=== PATIENT | female | born 1950 | race Caucasian/White ===

== ENCOUNTER → 2023-11-27 08:59 | Outpatient (REF) | payer MEDICARE, OTHER, SELFPAY ==
[2023-11-27 12:18] LABS: % Basophils 0.9 % (0-2); % Eosinophils 1.6 % (0-6); % Immature Granulocytes 0.4 % (0-0.5); % Lymphocytes 31.6 % (20.5-51.1); % Monocytes 9.5 % (1.7-9.3); Absolute Basophils 0.1 10^3/uL (0-0.2); Absolute Eosinophils 0.1 10^3/uL (0-0.7); Absolute Lymphocytes 2.1 10^3/uL (1.2-3.4); Absolute Monocytes 0.6 10^3/uL (0.1-0.6); Absolute Neutrophils 3.8 10^3/uL (1.4-6.5); Hemoglobin 13.4 g/dL (12.0-16.0); Mean Corp Hgb Conc. 34.4 g/dL (33.0-37.0); Mean Corpuscular Hgb 32.4 pg (27.0-31.0); Mean Corpuscular Volume 94.4 fL (81.0-99.0); Nucleated Red Blood Cells % 0 %; Red Blood Cell Count 4.13 10^6/uL (4.20-5.40); Red Cell Dist. Width 13.7 % (11.5-14.5); White Blood Cell Count 6.8 10^3/uL (4.8-10.8)
[2023-11-27 12:32] LABS: ALT (SGPT) 16 U/L (0-35); AST (SGOT) 21 U/L (14-36); Alkaline Phosphatase 79 U/L (38-126); Blood Urea Nitrogen 16 mg/dl (7-17); Calcium 9.7 mg/dl (8.4-10.2); Carbon Dioxide 30 mmol/L (22-30); Chloride 97 mmol/L (98-107); Glucose 90 mg/dl (70-99); HDL Cholesterol 61 mg/dl; LDL Cholesterol, Calculated 115 mg/dl; Potassium 4.2 mmol/L (3.5-5.1); Sodium 134 mmol/L (135-145); Total Bilirubin 0.6 mg/dl (0.2-1.3); Total Cholesterol 204 mg/dl (50-199); Total Protein 6.9 g/dl (6.3-8.2); Triglyceride 142 mg/dl (10-149); Very Low Density Lipoprotein 28 mg/dl (0-30); eGFR > 60.00
[2023-11-27 13:04] LABS: TSH 4.37 uIU/ml (0.47-4.68)
== END ==
LOC: HWLAB 08:59
PROVIDERS: ATTENDING PHYSICIAN Family Medicine
DX: Z00.00 Encounter for general adult medical examination without abnormal findings (principal); E03.9 Hypothyroidism, unspecified; E78.00 Pure hypercholesterolemia, unspecified; Z23 Encounter for immunization; I10 Essential (primary) hypertension; E66.9 Obesity, unspecified
CPT/HCPCS: 36415; 80053; 80061; 84443; 85025

== ENCOUNTER 2024-01-05 21:55 | Observation (INO) | payer MEDICARE, OTHER, SELFPAY ==
[2024-01-05 16:03] VITALS: BP 149/84
--- NOTE | 2024-01-05 16:46 | ED.GENMED ---
History of Present Illness
<Kat Burgos, RAW SAMPLER - Last Filed: 01/06/24 20:00>
General
Chief Complaint: Abdominal Pain
Source: patient
Exam Limitations: none
Time Seen by Provider: 01/05/24 16:44
Nursing documentation reviewed up to this point in time: agreed with
History of Present Illness
History of Present Illness:
73-year-old female with history HTN, hypothyroid, hysterectomy, cholecystectomy presents stating she developed lower abdominal pain 4 days ago which has gradually worsened and now seems to be located mostly in the left lower abdomen. She has had
yellowish watery diarrhea for which she has been taking Imodium. She feels nauseous but has not vomited. She denies fever or chills. No recent antibiotic use. No recent travel, no known sick contacts, no known exposures
Past History
<Kat Burgos, RAW SAMPLER - Last Filed: 01/06/24 20:00>
Past History
ED Past Medical History: HTN and Hypothyroidism
ED Past Surgical History: Cholecystectomy, Gynecological and Tonsilectomy
Social History
Tobacco: Non-smoker
Alcohol: None
Personal:
Living: with family
Employment: Retired
Review of Systems
<Kat Burgos, RAW SAMPLER - Last Filed: 01/06/24 20:00>
Review of Systems
Allergies reviewed?: Yes
All Other Systems: ROS reviewed and negative except as documented in HPI and ROS
Constitutional: Denies fever
Respiratory: Denies trouble breathing
Cardiac: Denies chest pain
ABD/GI: Reports abdominal pain, nausea and diarrhea; Denies vomiting, bloody stools or black stools
: Denies dysuria, frequency, difficulty voiding or urgency
Musculoskeletal: Reports no symptoms
Skin: Reports no symptoms
Neurological: Reports no symptoms
Phy Exam
<Kat Burgos, RAW SAMPLER - Last Filed: 01/06/24 20:00>
Physical Exam
Physical Exam:
GENERAL: Mild distress with abdominal pain, anxiety. A&Ox3.
CONSTITUTIONAL: Afebrile.
EYES: Clear, conjunctivae normal
ENMT: moist mucus membranes, Pharynx nl
RESPIRATORY: Regular respirations, nonlabored, lungs clear.
CARDIOVASCULAR: Regular rate and rhythm, no murmurs, no rubs.
GI: Soft, tender L side abdomen, normal BS
MUSCULOSKELETAL: Moves with ease. Well perfused.
SKIN: Warm, dry, pink
PSYCH: Anxious mood and affect. Well kept, interactive and appropriate
NEUROLOGIC: Awake, alert and oriented. No focal neurological deficits
Course
<Kat Burgos, RAW SAMPLER - Last Filed: 01/06/24 20:00>
Orders/Labs/Results
Orders:
Orders
01/05/24 Lunch
Clear Liquid
At Your Request: Full Participation
Does patient need a safe tray?: No
01/05/24 16:44
IV Insert/Care/Rem.- Treatment PRN
01/05/24 16:45
CT Abd/Pel (IV only)-DH only Urgent
Comment:
Reason For Exam: Left-sided abdominal pain, diarrhea
Morphine Sulfate 4 mg IV NOW STA
Ondansetron Injectable [Zofran] 4 mg IV NOW STA
01/05/24 17:04
Complete Blood Count/With Diff Urgent
01/05/24 18:05
Comprehensive Metabolic Panel Urgent
Lipase Urgent
01/05/24 18:32
Urinalysis Reflex To Culture Urgent
Date Specimen was Collected: 01/05/24
Time Specimen was Collected: 18:30
Urine Microscopic Reflex Cult Urgent
Urine Culture Urgent
JAYNA Source: U
Specimen Description:
Date Specimen was Collected: 01/05/24
Time Specimen was Collected: 18:30
01/05/24 19:19
0.9% Sodium Chloride 1000 ml [Nss] 1,000 ml IV BOLUS
01/05/24 21:44
Admit/Transfer Patient As Directed
Co-Sign Provider:
Level of Care: Observation services
Assign to:: Medical/Surgical
Physician / Group: edith/hospitalist
Diagnosis: abdominal pain, diarrhea, hyponatremia
Reason for Hospitalization: abdominal pain, diarrhea, hyponatremia
01/05/24 21:45
Code Status As Directed
Resuscitation Status: Full Code
01/05/24 22:00
Flush (0.9% Sodium Chloride) [Flush (Nss)] See Dose Instructions IV PER PROTOCOL
01/05/24 23:19
0.9% Sodium Chloride 1000 ml [Nss] 1,000 ml IV 125 mls/hr
Morphine Sulfate 2 mg IV Q4HPRN PRN
Ondansetron Injectable [Zofran] 4 mg IV Q6HPRN PRN
01/05/24 23:19
Activity As Directed
Activity Level: As Tolerated
Vital Signs As Directed
Frequency: Per unit guidelines
Pulse Ox/spot Check [RESP] Routine
Quantity: 1
DX Deep Vein Thrombosis Video Routine
01/06/24 06:55
Basic Metabolic Panel IN AM
Complete Blood Count/With Diff IN AM
Magnesium IN AM
01/06/24 18:00
Enoxaparin Sodium [Lovenox] 40 mg SC QPM
Abnormal Lab Results
01/05/24 01/05/24 01/05/24
17:04 18:05 18:32
MCH 31.7 H pg
(27.0-31.0)
Abs Immat Gran (auto) 0.1 H 10^3/uL
(0-0.05)
Absolute Monos (auto) 0.8 H 10^3/uL
(0.1-0.6)
Immature Gran % 0.8 H %
(0-0.5)
Monocytes % 9.9 H %
(1.7-9.3)
Sodium 128 L mmol/L
(135-145)
Chloride 95 L mmol/L
(98-107)
Urine Ketones 1+ A
(Negative)
Leukocyte Esterase Rfl 2+ A
(Negative)
Urine WBC (Reflex) 11-15 A /HPF
(0-5)
01/05/24 17:04
01/05/24 18:05
Vital Signs
Initial and Last Documented VS:
Initial Vital Signs
Temp Pulse Resp BP Pulse Ox
97.8 F 88 20 149/84 100
01/05/24 16:03 01/05/24 16:03 01/05/24 16:03 01/05/24 16:03 01/05/24 16:03
Last Documented Vital Signs
Temp Pulse Resp BP Pulse Ox
97.8 F 56 16 151/74 98
01/06/24 07:00 01/06/24 07:00 01/06/24 07:00 01/06/24 07:00 01/06/24 07:00
<MEHNAZ Villalobos - Last Filed: 01/05/24 20:46>
Orders/Labs/Results
Orders:
Orders
01/05/24 Lunch
Clear Liquid
At Your Request: Full Participation
Does patient need a safe tray?: No
01/05/24 16:44
IV Insert/Care/Rem.- Treatment PRN
01/05/24 16:45
CT Abd/Pel (IV only)-DH only Urgent
Comment:
Reason For Exam: Left-sided abdominal pain, diarrhea
Morphine Sulfate 4 mg IV NOW STA
Ondansetron Injectable [Zofran] 4 mg IV NOW STA
01/05/24 17:04
Complete Blood Count/With Diff Urgent
01/05/24 18:05
Comprehensive Metabolic Panel Urgent
Lipase Urgent
01/05/24 18:32
Urinalysis Reflex To Culture Urgent
Date Specimen was Collected: 01/05/24
Time Specimen was Collected: 18:30
Urine Microscopic Reflex Cult Urgent
Urine Culture Urgent
JAYNA Source: U
Specimen Description:
Date Specimen was Collected: 01/05/24
Time Specimen was Collected: 18:30
01/05/24 19:19
0.9% Sodium Chloride 1000 ml [Nss] 1,000 ml IV BOLUS
01/05/24 21:44
Admit/Transfer Patient As Directed
Co-Sign Provider:
Level of Care: Observation services
Assign to:: Medical/Surgical
Physician / Group: edith/hospitalist
Diagnosis: abdominal pain, diarrhea, hyponatremia
Reason for Hospitalization: abdominal pain, diarrhea, hyponatremia
01/05/24 21:45
Code Status As Directed
Resuscitation Status: Full Code
01/05/24 22:00
Flush (0.9% Sodium Chloride) [Flush (Nss)] See Dose Instructions IV PER PROTOCOL
01/05/24 23:19
0.9% Sodium Chloride 1000 ml [Nss] 1,000 ml IV 125 mls/hr
Morphine Sulfate 2 mg IV Q4HPRN PRN
Ondansetron Injectable [Zofran] 4 mg IV Q6HPRN PRN
01/05/24 23:19
Activity As Directed
Activity Level: As Tolerated
Vital Signs As Directed
Frequency: Per unit guidelines
Pulse Ox/spot Check [RESP] Routine
Quantity: 1
DX Deep Vein Thrombosis Video Routine
01/06/24 06:55
Basic Metabolic Panel IN AM
Complete Blood Count/With Diff IN AM
Magnesium IN AM
01/06/24 18:00
Enoxaparin Sodium [Lovenox] 40 mg SC QPM
Abnormal Lab Results
01/05/24 01/05/24 01/05/24
17:04 18:05 18:32
MCH 31.7 H pg
(27.0-31.0)
Abs Immat Gran (auto) 0.1 H 10^3/uL
(0-0.05)
Absolute Monos (auto) 0.8 H 10^3/uL
(0.1-0.6)
Immature Gran % 0.8 H %
(0-0.5)
Monocytes % 9.9 H %
(1.7-9.3)
Sodium 128 L mmol/L
(135-145)
Chloride 95 L mmol/L
(98-107)
Urine Ketones 1+ A
(Negative)
Leukocyte Esterase Rfl 2+ A
(Negative)
Urine WBC (Reflex) 11-15 A /HPF
(0-5)
01/05/24 17:04
01/05/24 18:05
Vital Signs
Initial and Last Documented VS:
Initial Vital Signs
Temp Pulse Resp BP Pulse Ox
97.8 F 88 20 149/84 100
01/05/24 16:03 01/05/24 16:03 01/05/24 16:03 01/05/24 16:03 01/05/24 16:03
Last Documented Vital Signs
Temp Pulse Resp BP Pulse Ox
97.8 F 56 16 151/74 98
01/06/24 07:00 01/06/24 07:00 01/06/24 07:00 01/06/24 07:00 01/06/24 07:00
<Kat Burgos, RAW SAMPLER - Last Filed: 01/06/24 20:00>
MDM/Problems Addressed
Differential Diagnosis Includes:
Gastroenteritis, diverticulitis, colitis
MDM/Problems Addressed:
73-year-old female with history HTN, hypothyroid, hysterectomy, cholecystectomy presents stating she developed lower abdominal pain 4 days ago which has gradually worsened and now seems to be located mostly in the left lower abdomen. She has had
yellowish watery diarrhea for which she has been taking Imodium. She feels nauseous but has not vomited. She denies fever or chills. No recent antibiotic use. No recent travel, no known sick contacts, no known exposures
Afebrile, moderate distress due to pain
5:45 PM:
CBC normal
CMP: Sodium 128 otherwise no clinically significant abnormality
Lipase normal
UA: Nitrates negative leukocytes +2, no RBCs, 11-15 RBCs with 6-10 epithelial squamous cells. Patient is asymptomatic for urinary tract infection symptoms, no treatment indicated at this time, pending culture results.
7:00 PM
Patient is awaiting CAT scan, she remains comfortable after IV fluids and pain medication
Case discussed with Savannah Moreland RAW SAMPLER who will assume care from this point.
<MEHNAZ Villalobos - Last Filed: 01/05/24 20:46>
MDM/Problems Addressed
MDM/Problems Addressed:
73-year-old female with history HTN, hypothyroid, hysterectomy, cholecystectomy presents stating she developed lower abdominal pain 4 days ago which has gradually worsened and now seems to be located mostly in the left lower abdomen. She has had
yellowish watery diarrhea for which she has been taking Imodium. She feels nauseous but has not vomited. She denies fever or chills. No recent antibiotic use. No recent travel, no known sick contacts, no known exposures
Afebrile, moderate distress due to pain
5:45 PM:
CBC normal
CMP: Sodium 128 otherwise no clinically significant abnormality
Lipase normal
UA: Nitrates negative leukocytes +2, no RBCs, 11-15 RBCs with 6-10 epithelial squamous cells. Patient is asymptomatic for urinary tract infection symptoms, no treatment indicated at this time, pending culture results.
7:00 PM
Patient is awaiting CAT scan, she remains comfortable after IV fluids and pain medication
Case discussed with Savannah Moreland RAW SAMPLER who will assume care from this point.
back into see patient. Reviewed CT scan. Explained that her sodium is low and patient continues with some abd pain. Patient has not had diarrhea since this morning so stool has not been collected. will admit patient for further evaluation.
Hospitalist notified.
<MEHNAZ Villalobos - Last Filed: 01/05/24 20:46>
*Radiology
Radiology exam reviewed: radiology read reviewed (CT=No significant acute abnormality identified in the abdomen or pelvis as described above. )
*Pulse Oximetry
Patient hypoxic: no
*EKG
Interpreted by ED Provider?: NA
Rate: EKG- N/A
*Resource Conservationist Interpretation
Rate: Resource Conservationist- N/A
*Critical Care Note
Total Time (30-74mins, 75-104mins- exclusive of procedures): Not Applicable
ED Attending Note
<Kat Burgos NP - Last Filed: 01/06/24 20:00>
-
Portions of this chart may have been created with voice recognition software.� Occasional wrong word or��sound alike� substitutions may have occurred due to the inherent limitations of voice recognition software.
Discharge Plan
Departure
Patient Disposition: Admit
Date of Disposition: 01/05/24
Time of Disposition: 20:45
Admit to: Med/Surg
Presentation/result/management discussed w/ accepting MD/DO: Hospitalist
Patient with high blood pressure during this ER visit?: Yes
Condition: Good
Discharge Problem:
Abdominal pain, Acute hyponatremia, Diarrhea
Interventions
Interventions:
*General Assessment Last Done: 01/06/24 00:12
*Neglect/Abuse Screening Last Done: 01/06/24 00:12
ED- Fall Risk Assessment Last Done: 01/05/24 21:01
*Nursing Disposition Last Done: 01/06/24 00:12
IH-Tbyrli-Azzeredzyc Assessment Last Done: 01/05/24 21:01
Discharge Date and Time
Discharge Date/Time: 01/05/24 23:45
[2024-01-05] MEDS: MORPHINE SULFATE 4 MG IV (17:05)
[2024-01-05] MEDS: ZOFRAN 4 MG IV ×2 (17:05→23:28)
[2024-01-05 17:09] VITALS: BP 173/68
[2024-01-05 17:19] LABS: % Basophils 0.5 % (0-2); % Eosinophils 0.8 % (0-6); % Immature Granulocytes 0.8 % (0-0.5); % Lymphocytes 27.1 % (20.5-51.1); % Monocytes 9.9 % (1.7-9.3); % Neutrophils 60.9 % (42.2-75.2); Absolute Eosinophils 0.1 10^3/uL (0-0.7); Absolute Immature Granulocytes 0.1 10^3/uL (0-0.05); Absolute Lymphocytes 2.3 10^3/uL (1.2-3.4); Absolute Monocytes 0.8 10^3/uL (0.1-0.6); Absolute Neutrophils 5.2 10^3/uL (1.4-6.5); Hematocrit 39.3 % (37.0-47.0); Hemoglobin 13.9 g/dL (12.0-16.0); Mean Corp Hgb Conc. 35.4 g/dL (33.0-37.0); Mean Corpuscular Hgb 31.7 pg (27.0-31.0); Mean Corpuscular Volume 89.5 fL (81.0-99.0); Mean Platelet Volume 8.7 fL (7.4-10.4); Nucleated Red Blood Cells % 0 %; Platelet Count 291 10^3/uL (130-400); Red Blood Cell Count 4.39 10^6/uL (4.20-5.40); Red Cell Dist. Width 12.9 % (11.5-14.5); White Blood Cell Count 8.5 10^3/uL (4.8-10.8)
[2024-01-05 18:00] VITALS: BP 163/66
[2024-01-05 18:38] LABS: Urine Albumin Negative (Neg - Trace); Urine Bilirubin Negative (Negative); Urine Character Clear (Clear); Urine Color Yellow; Urine Glucose Negative (Negative); Urine Ketone 1+ (Negative); Urine Leukocyte 2+ (Negative); Urine Nitrite Negative (Negative); Urine Occult Blood Negative (Negative); Urine Urobilinogen Negative (Neg - 1+)
[2024-01-05 18:40] LABS: ALT (SGPT) 17 U/L (0-35); AST (SGOT) 22 U/L (14-36); Albumin 4.1 g/dl (3.5-5.0); Alkaline Phosphatase 77 U/L (38-126); Blood Urea Nitrogen 8 mg/dl (7-17); Calcium 9.3 mg/dl (8.4-10.2); Carbon Dioxide 24 mmol/L (22-30); Chloride 95 mmol/L (98-107); Glucose 94 mg/dl (70-99); Lipase 32 U/L (23-300); Potassium 3.5 mmol/L (3.5-5.1); Sodium 128 mmol/L (135-145); Total Bilirubin 1.1 mg/dl (0.2-1.3); Total Protein 6.8 g/dl (6.3-8.2); eGFR > 60.00
[2024-01-05 18:48] LABS: Urine Red Blood Cell 0-2 /HPF (0-2)
[2024-01-05] MEDS: NSS 1000 IV ×2 (20:50→23:28)
--- NOTE | 2024-01-05 21:10 | HPS.HSE ---
Family Physician
-
Family Physician: Daxa Marie
Chief Complaint
-
abdominal pain, diarrhea
History of Present Illness
The patient is a 73 yo woman with PMH significant for HTN and hypothyroidism, who presents to the ED due to abdominal pain mostly in the left lower quadrant associated with liquid yellow diarrhea since Saturday, mostly in the morning. She had
another episode of yellow watery non-bloody diarrhea this morning and has acute cramping left lower quadrant and diffuse abdominal pain that improved slightly with Zofran and Morphine given in the ED. She has had associated belching, nausea, no
vomiting, no fever, no chills, no diarrhea since being in the ED. No recent travel, no sick contacts. She does cook at home and prepare meats for meals at home, however no other contacts she ate with have had similar symptoms.
ED txt: IV Morphine 4 mg, IV Zofran, C.Difficile toxin pending
Na 128
Medical History
Past Medical History
Past Medical History: Reports HTN and Hypothyroidism
Past Surgical History: Reports Cholecystectomy, Gynocological (GHAZALA) and Tonsilectomy
Social History
Tobacco: Non-smoker
Alcohol: None
Personal:
Living: With Family
Employment: Retired
Family History
Family History: Not pertinent
Allergies / Home Medications
Allergies reflects when Allergies were last updated in [facility].
Home Medications with original date entered in [facility]
Allergy/Medication List:
Allergies
Allergy/AdvReac Type Severity Reaction Status Date / Time
Cephalosporins Allergy Rash Verified 01/05/24 16:03
clindamycin Allergy Rash Verified 01/05/24 16:03
Penicillins Allergy Rash Verified 01/05/24 16:03
Synthroid 112 mcg PO daily
HCTZ PO daily unknown dosing-hold for now
Review of Systems
-
A 12 point ROS was completed and negative except as noted: Yes
Physical Exam
Vital Signs
Vital Signs
Temp Pulse Resp BP Pulse Ox
97.8 F 61 13 163/66 99
01/05/24 16:03 01/05/24 21:00 01/05/24 21:00 01/05/24 18:00 01/05/24 21:00
Physical Exam
General: Well Developed, Well Nourished, No Apparent Distress and Conversant
HEENT: NormoCephalic, Anicteric and Moist mucous membranes
Respiratory: Clear
Cardiac: S1/S2 and Regular Rhythm
GI: Soft, Non Distended and Tender (LLQ, voluntary guarding)
Musculoskeletal: No Clubbing, No Cyanosis and No Edema
Skin: Warm and Dry
Neuro: AO x 3, No Motor Deficits and Nonfocal/grossly intact
Psych: Calm
Laboratory Results
-
01/05/24 17:04
01/05/24 18:05
Laboratory Results
Total Bilirubin 1.1 mg/dl (0.2-1.3) 01/05/24 18:05
AST 22 U/L (14-36) 01/05/24 18:05
ALT 17 U/L (0-35) 01/05/24 18:05
Alkaline Phosphatase 77 U/L (38-126) 01/05/24 18:05
Lipase 32 U/L (23-300) 01/05/24 18:05
Data Reviewed
-
CT Scan: Report Reviewed by me (CT a/p IV contrast (no oral)- No significant acute abnormality identified in the abdomen or pelvis, as described above.)
Impression/Plan
-
IMPRESSION:
#Abdominal pain and diarrhea, possible infection versus inflammatory process, possible viral gastroenteritis versus food-born illness, no evidence for obstruction nor diverticulitis, normal WBC, afebrile
-stool studies/C.Difficile toxin
-IVF
-supportive care with IV Morphine/IV Zofran/IV PPI for now
-consider additional imaging/GI consult if pain not improved, monitor serial abdominal examinations
#Hyponatremia, likely hypovolemic hyponatremia
-continue IVF overnight and repeat Na level/BMP in am
#HTN
-hold HCTZ
#Hypothyroidism
-Continue Synthroid
-outpatient TSH normal in November per patient
#Incidental findings on CT discussed with the patient: Simple hepatic cysts, largest in the posterior segment right hepatic lobe measuring up to 7.5 cm. Bilateral hypoattenuating renal lesions, some which are compatible with simple cysts and others
which are too small to accurately characterize, and for which no imaging follow-up is recommended. The largest simple renal cyst is in the anterior left renal midpole measuring up to 5.9 cm. The spleen, adrenal glands and pancreas are within normal
limits. Gallbladder absent.
DVT proph-Lovenox
Full Code
[2024-01-05 23:00] VITALS: BP 138/84
[2024-01-05 23:30] VITALS: BP 185/44
[2024-01-06 00:56] VITALS: BP 138/84; BMI 37.8
[2024-01-06] MEDS: MORPHINE SULFATE 2 MG IV (03:24)
[2024-01-06] MEDS: DILAUDID 0.25 MG IV ×2 (04:03→09:15)
--- NOTE | 2024-01-06 05:30 | PTCARENOTE ---
Pt complaining of severe abdominal pain 8/10 stabbing in the LUQ and LLQ. PRN morphine was given to the pt to help relieve pain. After about 25 minutes the pt had not experienced any relief from pain. MATE SHIP was notified and ordered 0.25mg of Dilaudid.
STAT medication was promptly given to pt. Pt experienced relief from pain after receiving the Dilaudid. MATE SHIP updated and PRN medication was changed to Dilaudid.
[2024-01-06] MEDS: SYNTHROID 112 MCG PO (06:13)
[2024-01-06 07:00] VITALS: BP 151/74
[2024-01-06 07:29] LABS: % Basophils 0.5 % (0-2); % Eosinophils 1.2 % (0-6); % Immature Granulocytes 0.8 % (0-0.5); % Lymphocytes 22.7 % (20.5-51.1); % Monocytes 10.4 % (1.7-9.3); % Neutrophils 64.4 % (42.2-75.2); Absolute Eosinophils 0.1 10^3/uL (0-0.7); Absolute Immature Granulocytes 0.1 10^3/uL (0-0.05); Absolute Lymphocytes 1.7 10^3/uL (1.2-3.4); Absolute Monocytes 0.8 10^3/uL (0.1-0.6); Absolute Neutrophils 4.9 10^3/uL (1.4-6.5); Hematocrit 35.3 % (37.0-47.0); Hemoglobin 12.8 g/dL (12.0-16.0); Mean Corp Hgb Conc. 36.3 g/dL (33.0-37.0); Mean Corpuscular Hgb 32.1 pg (27.0-31.0); Mean Corpuscular Volume 88.5 fL (81.0-99.0); Mean Platelet Volume 8.6 fL (7.4-10.4); Nucleated Red Blood Cells % 0 %; Platelet Count 291 10^3/uL (130-400); Red Blood Cell Count 3.99 10^6/uL (4.20-5.40); Red Cell Dist. Width 13.2 % (11.5-14.5); White Blood Cell Count 7.7 10^3/uL (4.8-10.8)
[2024-01-06 08:01] LABS: Blood Urea Nitrogen 6 mg/dl (7-17); Carbon Dioxide 21 mmol/L (22-30); Chloride 100 mmol/L (98-107); Estimated Creatinine Clearance 77 ml/min; Glucose 99 mg/dl (70-99); Magnesium 1.9 mg/dl (1.6-2.3); Potassium 3.5 mmol/L (3.5-5.1); Sodium 132 mmol/L (135-145); eGFR > 60.00
--- NOTE | 2024-01-06 10:41 | CM ---
CM met with pt bedside
Pt resides with her dtr in a multistory home with 4STE
Full flight to 2nd floor
Pt is independent with her ADls, drives+
Denies use of DMEs
Pt has Rx coverage through [employer], now called [facility] per pt
PCP- Daxa Marie
Rx- Brendon Ratliff
Per nursing, pt is independent throughout room
Pt is OBS- BADILLO verbally reviewed due to precautions
Copy provided
Discharge Disposition- home, no needs- dtr transport
--- NOTE | 2024-01-06 11:06 | W.PN.HOSP.TC ---
Addendum entered and electronically signed by Jordan Zambrano MD 01/06/24 15:32:
Patient seen and examined
Discussed with resident
Impression/plan:*
Presentation with acute onset of abdominal discomfort and diarrhea.
Suspect acute gastroenteritis possibly viral.
Afebrile and hemodynamically stable with no systemic symptoms.
Exam benign
CT scan of the abdomen pelvis with no acute abnormalities
Normal white count
Mild hyponatremia secondary to hypovolemia improving with IV fluids
Symptomatically improved shortly postadmission.
Advance diet.
Okay for discharge and outpatient monitoring
May resume HCTZ if stable oral intake and resolved GI symptoms.
Original Note:
Today's Communication/Plan
-
* Discharge today.
Assessment / Plan
Assessment / Plan
Assessment
The patient is a 73 yo woman with PMH significant for HTN and hypothyroidism, who presents to the ED due to abdominal pain mostly in the left lower quadrant associated with liquid yellow diarrhea since Saturday, mostly in the morning. She had
another episode of yellow watery non-bloody diarrhea this morning and has acute cramping left lower quadrant and diffuse abdominal pain that improved slightly with Zofran and Morphine given in the ED. She has had associated belching, nausea, no
vomiting, no fever, no chills, no diarrhea since being in the ED. No recent travel, no sick contacts. She does cook at home and prepare meats for meals at home, however no other contacts she ate with have had similar symptoms.
ED txt: IV Morphine 4 mg, IV Zofran, C.Difficile toxin pending
Na 128
Plan
Viral gastroenteritis
- Likely infection versus inflammatory process, food-born illness.
- No evidence for obstruction nor diverticulitis, normal WBC, afebrile
- stool studies/C.Difficile toxin
- IVF
- supportive care with IV Morphine/IV Zofran/IV PPI for now
- consider additional imaging/GI consult if pain not improved, monitor serial abdominal examinations
- Has not had a bowel movement since last night.
- Feels well; vitals stable; blood work better - okay to discharge.
Hyponatremia, likely hypovolemic hyponatremia
- Likely from diarrhea; hold HCTZ.
- Improved overnight
- Continue IVF.
Hypertension
- Hold HCTZ
Hypothyroidism
- Continue Synthroid
- Cutpatient TSH normal in November per patient
Simple hepatic cysts
- Incidental findings on CT discussed with the patient
- No further investigation warranted.
DVT prophylaxis
- Enoxaparin
Code status
- Full.
Anticipated Discharge: Today
Subjective/Interval History
-
Date of Service: January 06, 2024
Objective Data
-
Labs:
Laboratory Results
01/06/24
06:55
WBC 7.7
Hgb 12.8
Hct 35.3 L
Plt Count 291
Sodium 132 L
Potassium 3.5
Chloride 100
Carbon Dioxide 21 L
BUN 6 L
Creatinine 0.7
Glucose 99
Calcium 9.0
Vital Signs:
Vital Signs
Temp Pulse Resp BP Pulse Ox
97.8 F 56 16 151/74 98
01/06/24 07:00 01/06/24 07:00 01/06/24 07:00 01/06/24 07:00 01/06/24 07:00
I&O
01/05/24 01/06/24 01/07/24
06:59 06:59 06:59
Intake Total 180 / 180
Balance 180 / 180
Review of Systems
-
History Source: Patient
Constitutional: Reports No Symptoms
EENT: Reports No Symptoms Reported
Respiratory: Reports No Symptoms
Cardiac: Reports No Symptoms
Abdomen/GI: Reports Diarrhea and Other; Denies Nausea, Vomiting, Black Stools, Anorexia or Pain
Genitourinary: Reports No Symptoms
Musculoskeletal: Reports No Symptoms
Skin: Reports No Symptoms
Neuro: Reports No Symptoms
Endocrine: Reports No Symptoms
Hematologic / Lymphatic: Reports No Symptoms
Allergy / Immunology: Reports No Symptoms
Physical Exam
-
General: No Apparent Distress and Comfortable
HEENT: Normocephalic, Atraumatic, Moist Mucous Membranes, Anicteric and No Ptosis
Respiratory: Clear to Auscultation and Non Labored Respirations
Cardiac: Regular Rhythm and S1/S2
Breast: Deferred by me
GI: Soft, Nontender, Nondistended and Normal Bowel Sounds
Rectal: Deferred by Provider
Genito-urinary: No Costovertebral Tender
Musculoskeletal: No Clubbing, No Cyanosis and No Edema
Skin: Warm, Dry and IV Access / Catheter Site
Neuro: Awake, Alert, Oriented and Nonfocal/Grossly Intact
Hematologic / Lymphatic: No Lymphadenopathy
Psych: Calm
--- NOTE | 2024-01-06 13:57 | W.DCSUMMARY ---
Documented by User: Marlon Lowe MD, Resident 01/06/24 14:06
Discharge Summary
Discharge Data
Date of Admission: 01/05/24
Date of Discharge: 01/06/24
-
Pending Results: Yes (stool studies)
Hospital Course
Primary discharge diagnosis
* Viral gastroenteritis
Secondary discharge diagnoses
* Hypovolemic hyponatremia
* Essential hypertension
* Acquired hypothyroidism
* Hepatic cyst
Hospital course
Dede Banuelos, age 73, came to the emergency on 01-05-24 with abdominal pain with liquid yellow diarrhea for the past 5 days. Her symptoms had remained persistent however she began to feel uncomfortable and decided to go to the hospital. No known
sick contacts, suspected food poisoning, recent travels or other changes to her health or medications. In the ED, she was found to by hyponatremic, likely hypovolemic and started on IV hydration. Her blood work improved the next morning, and she was
feeling better. She did not have a bowel movement since she came to the hospital, and the abdominal pain was mostly resolved. Her vitals remained stable throughout her visit and she will be discharged to home today without any needs. Advised to
re-check blood work in 1 week and follow-up with primary. Recommended to discuss switching hydrochlorothiazide to a better agent due to concerns regarding hyponatremia. Repeat CT AP in 4-6 months for incidental hepatic cyst found at this visit.
Discharge Plan
-
Patient Disposition: Home (Routine Discharge)
Discharge Diagnosis/Procedures: Viral gastroenteritis
Condition: Good
Diet: As tolerated
Activity: As tolerated
Driving Restrictions: As prior to admission
Bathing Restrictions: None
Blood Work: CBC and BMP in 1 week
Others Tests: CT AP in 4-6 months
Activity Restrictions/Additional Instructions:
Consider changing hydrochlorothiazide to other antihypertensive because of concerns for low sodium long-term
Instructions: Viral gastroenteritis in adults
Referrals:
Daxa Marie, [Family Provider] -
Prescriptions:
Continued
levothyroxine
112 mcg PO Daily
hydrochlorothiazide
25 mg PO 1XD
Discharge Orders:
Discharge Patient (As Directed); Ordered 01/06/24
Ordered By: Marlon Lowe
Discharge Date and Time
Discharge Date/Time: 01/06/24 14:08
Print Language: SUDANESE

Documented by User: Jordan Zambrano MD 01/06/24 15:29
Discharge Summary
Discharge Data
Date of Admission: 01/05/24
Date of Discharge: 01/06/24
Discharge Plan
-
Patient Disposition: Home (Routine Discharge)
Discharge Diagnosis/Procedures: Viral gastroenteritis
Condition: Good
Diet: As tolerated
Activity: As tolerated
Driving Restrictions: As prior to admission
Bathing Restrictions: None
Blood Work: CBC and BMP in 1 week
Others Tests: CT AP in 4-6 months
Activity Restrictions/Additional Instructions:
Consider changing hydrochlorothiazide to other antihypertensive because of concerns for low sodium long-term
Instructions: Viral gastroenteritis in adults
Referrals:
Daxa Marie DO [Family Provider] -
Prescriptions:
Continued
levothyroxine
112 mcg PO Daily
hydrochlorothiazide
25 mg PO 1XD
Discharge Orders:
Discharge Patient (As Directed); Ordered 01/06/24
Ordered By: Marlon Lowe
Discharge Date and Time
Discharge Date/Time: 01/06/24 14:08
Print Language: SUDANESE
== END 2024-01-06 14:08 | disposition home or self-care (01) ==
LOC: 4 WEST ACU 21:55
PROVIDERS: Registered Nurse; Student in an Organized Health Care Education/Training Program; ADMITTING PHYSICIAN Internal Medicine; ATTENDING PHYSICIAN Internal Medicine; EMERGENCY PHYSICIAN Emergency Medicine; FAMILY PHYSICIAN Family Medicine
DX: A08.4 Viral intestinal infection, unspecified (principal); E87.1 Hypo-osmolality and hyponatremia; E86.1 Hypovolemia; I10 Essential (primary) hypertension; E03.9 Hypothyroidism, unspecified; K76.89 Other specified diseases of liver
CPT/HCPCS: 74177; 80048; 80053; 81003; 81015; 83690; 83735; 85025; 87086; 96361; 96374; 96375; 99285; G0378; Q9967

== ENCOUNTER 2024-01-13 04:04 | Inpatient (IN) | payer MEDICARE, OTHER, SELFPAY ==
[2024-01-13] VITALS (10 sets, daily range): BP systolic 128–155; BP diastolic 57–82; BMI 39.1; BMI 37.6
--- NOTE | 2024-01-13 01:10 | ED.GENMED ---
History of Present Illness
General
Chief Complaint: Abdominal Pain
Source: patient and previous hospital records (Overnight hospitalization January 04 to January 05 for very similar complaint.)
Exam Limitations: none
Time Seen by Provider: 01/13/24 00:39
Nursing documentation reviewed up to this point in time: agreed with
History of Present Illness
History of Present Illness:
This is a 73-year-old woman with history of hypertension, hypothyroidism, hysterectomy, cholecystectomy who returns to the ED with complaints of ongoing intermittent left lower quadrant pain accompanied with nausea and intermittent yellowish liquid
stools. She was hospitalized overnight 1 week ago, January 04 to January 05 with very similar complaints. She has not had a fever nor chills, no recent antibiotics, no close contacts with similar symptoms and no recent travel.
She was hospitalized overnight for treatment of hyponatremia thought to be dehydration and related and symptoms thought to be viral gastroenteritis in nature. She had no diarrhea during that hospitalization nor ED stay thus stool cultures were not
obtained. CT abdomen pelvis showed diverticulosis otherwise was unremarkable. No evidence of diverticulitis nor colitis.
Patient states since discharge on the symptoms have been sporadic but overall had been improving and she followed up with her primary care physician on , January 08 and was feeling pretty good. She has attempted to maintain a bland diet
but crampy abdominal pain, nausea and intermittent diarrhea returned the following day and has been persistent throughout the weekend. She reports loose stools primarily in the morning, denies hematemesis. She has been nauseated, difficulty eating
but has had no episodes of vomiting.
No history of similar episodes in the past.
Crampy abdominal pain seems to improve with Tylenol but does not resolve.
Past History
Past History
ED Past Medical History: HTN and Hypothyroidism
ED Past Surgical History: Cholecystectomy, Gynecological and Tonsilectomy
Social History
Tobacco: Non-smoker
Alcohol: None
Personal:
Living: with family
Employment: Retired
Family History
Family History: Other (Noncontributory)
Phy Exam
Physical Exam
Physical Exam:
GENERAL: 73-year-old woman appears her stated age, awake and alert, mildly to moderately anxious, intermittently briefly tearful. Easily communicative.
EYE: anicteric
NECK: Supple, nontender, no meningismus, no significant adenopathy.
ENT: oral mucosa is mildly dry. Lips are mildly dry. No rhinorrhea.
CARDIAC: Regular rate and rhythm. no murmur.
LUNGS: Clear breath sounds bilaterally, no acute respiratory distress, no wheezes/rales/rhonchi
ABDOMEN: Rotund, soft, nondistended, mild generalized tenderness throughout with moderate tenderness left lower quadrant, no r/g, no cvat. Mildly hyperactive bowel sounds.
NEUROLOGICAL: Alert and oriented x3, no focal neuro deficits. Gait is steady.
SKIN: Warm and dry, normal color, skin intact. No rash.
MUSCULOSKELETAL: No C/C/E. peripheral pulses are full and equal b/l. No palpable tenderness.
PSYCH: Anxious. Cooperative.
Course
Orders/Labs/Results
Orders:
Orders
01/13/24 01:05
Complete Blood Count/With Diff Urgent
Comprehensive Metabolic Panel Urgent
Lactic Acid Urgent
01/13/24 01:08
STOOL [C difficile Antigen & Toxins] Urgent
JAYNA Source: Feces/Stool
Specimen Description:
Stool Culture Urgent
JAYNA Source: Feces/Stool
Specimen Description:
0.9% Sodium Chloride 1000 ml [Nss] 1,000 ml IV BOLUS
Morphine Sulfate 4 mg IV NOW STA
Ondansetron Injectable [Zofran] 4 mg IV NOW STA
01/13/24 01:09
CT Abd/pelvis W Iv Cont Urgent
Comment:
Reason For Exam: LLQ abd pain w N and diarrhea
01/13/24 02:48
LevoFLOXacin 500 MG/100 ML [Levaquin] 500 mg in 100 ml IV NOW
MetroNIDAZOLE 500 MG/100 ML [Flagyl 500 mg] 100 ml IV NOW
Abnormal Lab Results
01/13/24
01:05
MCH 31.7 H pg
(27.0-31.0)
MCHC 37.2 H g/dL
(33.0-37.0)
Absolute Monos (auto) 0.7 H 10^3/uL
(0.1-0.6)
Monocytes % 9.9 H %
(1.7-9.3)
Sodium 126 L mmol/L
(135-145)
Chloride 93 L mmol/L
(98-107)
Carbon Dioxide 20 L mmol/L
(22-30)
BUN 5 L mg/dl
(7-17)
Glucose 110 H mg/dl
(70-99)
01/13/24 01:05
01/13/24 01:05
Vital Signs
Initial and Last Documented VS:
Initial Vital Signs
Temp Pulse Resp BP Pulse Ox
98.9 F 75 22 137/82 98
01/13/24 00:37 01/13/24 00:37 01/13/24 00:37 01/13/24 00:37 01/13/24 00:37
Last Documented Vital Signs
Temp Pulse Resp BP Pulse Ox
98.9 F 62 22 155/74 96
01/13/24 00:37 01/13/24 02:16 01/13/24 00:37 01/13/24 02:13 01/13/24 02:16
MDM/Problems Addressed
Differential Diagnosis Includes:
Concern for colitis, diverticulitis, concern for recurrent hyponatremia, dehydration/acute kidney injury.
Will check labs and due to ongoing symptoms concern for colitis, diverticulitis, will repeat CT abdomen and pelvis.
Will initiate IV fluids and medicate for nausea and pain.
*Radiology
Radiology exam reviewed: radiology read reviewed (CAT scan shows mild acute sigmoid diverticulitis)
*Pulse Oximetry
Patient hypoxic: no
*Critical Care Note
Total Time (30-74mins, 75-104mins- exclusive of procedures): Not Applicable
Update Note
Update Note:
01/13/2024 0250 AM
Patient is much more comfortable after IV fluids, Zofran and morphine but continues with significant tenderness left lower quadrant.
Labs are remarkable for recurrent hyponatremia with sodium of 126.
CAT scan shows acute sigmoid diverticulitis, no evidence of perforation or abscess.
Will initiate IV antibiotics, continue IV fluids, continue IV pain medication and admit to hospitalist service.
ED Attending Note
-
Portions of this chart may have been created with voice recognition software.� Occasional wrong word or��sound alike� substitutions may have occurred due to the inherent limitations of voice recognition software.
Discharge Plan
Departure
Patient Disposition: Admit
Date of Disposition: 01/13/24
Time of Disposition: 02:51
Admit to: Med/Surg
Admit to doctor: Dewayne
Presentation/result/management discussed w/ accepting MD/DO: Hospitalist
Discharge Problem:
acute sigmoid diverticulitis, recurrent hyponatremia
Prescriptions:
No Action
levothyroxine
112 mcg PO Daily
hydrochlorothiazide
25 mg PO 1XD
Referrals:
Daxa Marie DO [Family Provider] -
Interventions
Interventions:
*Risk Screen - Suicide Last Done: 01/13/24 01:26
*General Assessment Last Done: 01/13/24 00:37
*Neglect/Abuse Screening Last Done: 01/13/24 01:26
ED- Fall Risk Assessment Last Done: 01/13/24 01:26
*ED COVID-19 Vaccine History Last Done: 01/13/24 01:26
PF-Bcymvg-Ctrtfkyyyd Assessment Last Done: 01/13/24 01:24
Discharge Date and Time
Print Language: UZBEK
[2024-01-13] MEDS: MORPHINE SULFATE 4 MG IV (01:12)
[2024-01-13] MEDS: ZOFRAN 4 MG IV (01:13)
[2024-01-13] MEDS: NSS 1000 IV ×2 (01:13→06:13)
[2024-01-13 01:16] LABS: % Basophils 0.9 % (0-2); % Eosinophils 1.3 % (0-6); % Immature Granulocytes 0.4 % (0-0.5); % Lymphocytes 35.1 % (20.5-51.1); % Monocytes 9.9 % (1.7-9.3); % Neutrophils 52.4 % (42.2-75.2); Absolute Basophils 0.1 10^3/uL (0-0.2); Absolute Eosinophils 0.1 10^3/uL (0-0.7); Absolute Lymphocytes 2.4 10^3/uL (1.2-3.4); Absolute Monocytes 0.7 10^3/uL (0.1-0.6); Absolute Neutrophils 3.6 10^3/uL (1.4-6.5); Hematocrit 37.1 % (37.0-47.0); Hemoglobin 13.8 g/dL (12.0-16.0); Mean Corp Hgb Conc. 37.2 g/dL (33.0-37.0); Mean Corpuscular Hgb 31.7 pg (27.0-31.0); Mean Corpuscular Volume 85.3 fL (81.0-99.0); Mean Platelet Volume 8.3 fL (7.4-10.4); Nucleated Red Blood Cells % 0 %; Platelet Count 321 10^3/uL (130-400); Red Blood Cell Count 4.35 10^6/uL (4.20-5.40); Red Cell Dist. Width 12.9 % (11.5-14.5); White Blood Cell Count 6.9 10^3/uL (4.8-10.8)
[2024-01-13 01:29] LABS: Lactic Acid 1.8 mmol/L (0.7-2.0)
[2024-01-13 01:30] LABS: ALT (SGPT) 19 U/L (0-35); AST (SGOT) 25 U/L (14-36); Albumin 4.5 g/dl (3.5-5.0); Alkaline Phosphatase 83 U/L (38-126); Blood Urea Nitrogen 5 mg/dl (7-17); Calcium 9.9 mg/dl (8.4-10.2); Carbon Dioxide 20 mmol/L (22-30); Chloride 93 mmol/L (98-107); Glucose 110 mg/dl (70-99); Potassium 3.5 mmol/L (3.5-5.1); Sodium 126 mmol/L (135-145); Total Bilirubin 1.1 mg/dl (0.2-1.3); eGFR > 60.00
[2024-01-13] MEDS: LEVAQUIN 100 IV (03:10)
--- NOTE | 2024-01-13 03:31 | HPS.HSE ---
Family Physician
-
Family Physician: Daxa Marie
Chief Complaint
-
Abd Pain, Diarrhea
History of Present Illness
Patient is a 73y F with PMH significant for hypertension and hypothyroidism who presents to ED complaining of abdominal pain and diarrhea. Patient states that she initially developed symptoms about 2 weeks ago. She describes liquid, yellow
stools and LLQ abdominal pain that gradually increased in intensity. She also had nausea with occasional non-bloody, bilious emesis. Patient ultimately presented to the ED here on 01/04 where she was noted to have hyponatremia. She was admitted
and treated with IVFs. Her diarrhea seemed to improve and patient was discharged to home. She states that she felt well for several days; however, on Saturday her symptoms returned again. She has the same yellow stools and LLQ abdominal pain. She
denies any fevers or chills.
Patient was seen by her PCP following her prior hospitalization. She was started on sertraline (has taken 2 doses thus far) and was advised to change HCTZ to lisinopril (but has yet to obtain this prescription).
With worsening pain / diarrhea, patient returned to the ED this evening.
Medical History
Past Medical History
Past Medical History: Reports Other
Additional Past Medical History:
Hypertension
Hypothyroidism
Obesity
Hyperthyroidism s/p BARTLETT Ablation
Past Surgical History: Reports Other
Additional Past Surgical History:
Cholecystectomy
GHAZALA
T&A
Social History
Tobacco: Non-smoker
Alcohol: Occasional (Very rare)
Drug: None
Family History
Family History: Not pertinent
Allergies / Home Medications
Allergies reflects when Allergies were last updated in [employer].
Home Medications with original date entered in [employer]
Allergy/Medication List:
Allergies
Allergy/AdvReac Type Severity Reaction Status Date / Time
Cephalosporins Allergy Rash Verified 01/05/24 16:03
clindamycin Allergy Rash Verified 01/05/24 16:03
Penicillins Allergy Rash Verified 01/05/24 16:03
Home Medications
hydrochlorothiazide 25 mg PO 1XD 01/06/24
levothyroxine 112 mcg PO Daily 01/06/24
sertraline 25 mg tablet 25 mg PO DAILY 01/13/24
Review of Systems
-
History Source: Patient
A 12 point ROS was completed and negative except as noted: Yes
Constitutional: Reports Fatigue; Denies Fever or Chills
Respiratory: Denies Cough or Trouble Breathing
Cardiac: Denies Chest Pain or Palpitations
Abdomen/GI: Reports Abdominal Pain, Nausea, Vomiting, Diarrhea and Anorexia; Denies Bloody Stools or Black Stools
: Denies Dysuria, Frequency or Flank Pain
Neurological: Denies Dizzy or Headache
Psych: Denies Depression or Anxiety
Physical Exam
Vital Signs
Vital Signs
Temp Pulse Resp BP Pulse Ox
98.9 F 62 22 155/74 96
01/13/24 00:37 01/13/24 02:16 01/13/24 00:37 01/13/24 02:13 01/13/24 02:16
Physical Exam
General: Other (73y F in mild distress due to abdominal pain / nausea.)
HEENT: Moist mucous membranes and PERRLA
Respiratory: Clear; No Wheezes, Rales or Rhonchi
Cardiac: S1/S2 and Regular Rhythm; No Murmur
GI: Soft, Non Distended, Normal Bowel Sounds and Other (Pos LLQ tenderness with voluntary guarding. No rebound.)
Musculoskeletal: No Clubbing, No Cyanosis and Other (Trace - 1+ ankle edema bilaterally.)
Neuro: AO x 3
Laboratory Results
-
01/13/24 01:05
01/13/24 01:05
Laboratory Results
Lactic Acid 1.8 mmol/L (0.7-2.0) 01/13/24 01:05
Total Bilirubin 1.1 mg/dl (0.2-1.3) 01/13/24 01:05
AST 25 U/L (14-36) 01/13/24 01:05
ALT 19 U/L (0-35) 01/13/24 01:05
Alkaline Phosphatase 83 U/L (38-126) 01/13/24 01:05
Impression/Plan
-
A/P: Patient is a 73y F with PMH significant for hypertension and hypothyroidism who presents to ED complaining of abdominal pain and diarrhea.
Sigmoid Diverticulitis
- Admit for further evaluation and treatment.
- Continue with IV abx for now. Unfortunately, patient has several abx allergies that necessitate use of Levo / Flagyl.
- Supportive care including IVFs, pain control, antiemetics.
- Check stool studies if patient has further diarrhea.
- Follow for clinical improvement with abx course.
- Note that patient is afebrile, has no leukocytosis and prior CT scan was interpreted as unremarkable.
- Would recommend follow-up with GI as an outpatient for eventual colonoscopy (none prior).
Hyponatremia
- Recurrent likely due to continued use of HCTZ and continued volume losses.
- Stop HCTZ completely as planned by PCP.
- IVF overnight.
- Follow for improvement in Na levels.
Benign Hypertension
- Stable. Begin lisinopril 10mg daily and adjust as needed for adequate BP control.
Hypothyroidism
- Continue current dose of T4 for now.
- Update TFTs.
Anxiety / Depression
- Newly started on sertraline (2 doses) in the event that GI symptoms were related to 'nervous bowels', etc.
- Hold further SSRI for now.
- Follow for improvement in GI symptoms with above treatments.
Obesity due to excess calories
- Affects all aspects of care.
- Encourage healthy diet and increased exercise with goal of weight loss.
DVT Prophylaxis: SCDs
Code Status: Full
[2024-01-13] MEDS: FLAGYL 500 MG 100 IV ×3 (03:46→23:45)
[2024-01-13] MEDS: COMPAZINE 5 MG IV (05:04)
[2024-01-13] MEDS: DILAUDID 0.5 MG IV (05:06)
[2024-01-13 05:40] LABS: Hematocrit 33.1 % (37.0-47.0); Hemoglobin 12.4 g/dL (12.0-16.0); Mean Corp Hgb Conc. 37.5 g/dL (33.0-37.0); Mean Corpuscular Hgb 32.4 pg (27.0-31.0); Mean Corpuscular Volume 86.4 fL (81.0-99.0); Mean Platelet Volume 8.3 fL (7.4-10.4); Platelet Count 297 10^3/uL (130-400); Red Blood Cell Count 3.83 10^6/uL (4.20-5.40); Red Cell Dist. Width 12.9 % (11.5-14.5); White Blood Cell Count 5.9 10^3/uL (4.8-10.8)
--- NOTE | 2024-01-13 06:00 | PTCARENOTE ---
Pt admitted from ED to room 2139, aaox3, IVF's started. Pt has no c/o pain or nausea at this time. Oriented to room and call light.
[2024-01-13 06:07] LABS: Blood Urea Nitrogen 5 mg/dl (7-17); Calcium 9.1 mg/dl (8.4-10.2); Carbon Dioxide 20 mmol/L (22-30); Chloride 97 mmol/L (98-107); Estimated Creatinine Clearance 91 ml/min; Glucose 97 mg/dl (70-99); Potassium 3.7 mmol/L (3.5-5.1); Sodium 125 mmol/L (135-145); eGFR > 60.00
[2024-01-13] MEDS: SYNTHROID 112 MCG PO (06:12)
[2024-01-13 06:35] LABS: TSH Reflex To Free T4 7.76 uIU/ml (0.47-4.68)
[2024-01-13 07:06] LABS: Free T4 1.68 ng/dl (0.78-2.19)
[2024-01-13] MEDS: ZESTRIL 10 MG PO (09:19)
[2024-01-13 10:20] LABS: Osmolality Serum 263 mOsm/kg (275-300)
--- NOTE | 2024-01-13 11:38 | W.PN.UPDATE ---
Update Note
Progress Note Update
Seen and examined independent of overnight physician. Patient states of epigastric burning sensation. Mild nausea. No abdominal pain. Trying to drink liquids.
General: eating breakfast.
HEENT: Moist mucous membranes and PERRLA
Respiratory: Clear; No Wheezes, Rales or Rhonchi
Cardiac: S1/S2 and Regular Rhythm; No Murmur
GI: Soft, Non Distended, Normal Bowel Sounds , non tender orin in LLQ this am
Musculoskeletal: No Clubbing, No Cyanosis and Other (Trace - 1+ ankle edema bilaterally.)
Neuro: AO x 3
A/P: Patient is a 73y F with PMH significant for hypertension and hypothyroidism who presents to ED complaining of abdominal pain and diarrhea.
Acute Sigmoid Diverticulitis
- Continue with IV abx for now. Unfortunately, patient has several abx allergies that necessitate use of Levo / Flagyl.
- Supportive care including IVFs, pain control, antiemetics.
- Check stool studies if patient has further diarrhea.
- Follow for clinical improvement with abx course.
- Note that patient is afebrile, has no leukocytosis and prior CT scan was interpreted as unremarkable.
- Would recommend follow-up with GI as an outpatient for eventual colonoscopy as never had colonoscopy in the past.
Hyponatremia Hypotonic
- Recurrent likely due to continued use of HCTZ and continued volume losses.
- Stop HCTZ completely as planned by PCP.
- IVF overnight.
- Follow for improvement in Na levels. Urine studies pending.
- Nephro input. May need 3%?
Benign Hypertension
- Stable. Begin lisinopril 10mg daily and adjust as needed for adequate BP control.
Hypothyroidism Subclinical
- Continue current dose of T4 for now.
- repeat TFTs 4- 6 weeks as outpatient pending resolution of acute illness
Anxiety / Depression
- Newly started on sertraline (2 doses) in the event that GI symptoms were related to 'nervous bowels', etc.
- Hold further SSRI for now.
- Follow for improvement in GI symptoms with above treatments.
Obesity due to excess calories
- Affects all aspects of care.
- Encourage healthy diet and increased exercise with goal of weight loss.
DVT Prophylaxis: SCDs
Code Status: Full
[2024-01-13] MEDS: NSS (PRESERVATIVE FREE) 8 ML IV ×2 (11:45→20:54)
[2024-01-13] MEDS: PEPCID 20 MG IV ×2 (11:46→20:54)
[2024-01-13 12:43] LABS: Urine Sodium 92 mmol/L (30-90)
--- NOTE | 2024-01-13 12:56 | W.CON.NEPH ---
Consultation
-
Date/Time Consultation Requested: 01/13/2024 12:00 noon
Date/Time Consultation Performed: 01/13/2024 1:00 PM
Requesting Provider: Dr. Pineda
Performing Provider: Dr. Kendrick
Reason for Consultation: Hyponatremia
Medical History
-
Chief Complaint: Hyponatremia
History of Present Illness:
The patient is a 73-year-old female with a past medical history of hypertension maintained on hydrochlorothiazide. She is also maintained on sertraline for depression which was just started this past weekend. She is maintained on levothyroxine for
acquired hypothyroidism. She was recently admitted a week prior for 1 day following a diarrhea illness for which she was also noted to have some underlying hyponatremia when her sodium was noted to be 128 on 01/05/24. She represented last evening
with recurrent complaints of left lower quadrant abdominal pain and diarrhea with yellow stools. Her sodium was 125 and nephrology was asked to see the patient.
Past Medical History
Hypertension
Hypothyroidism, status post BARTLETT ablation for hyperthyroidism
Depression
Cholecystectomy
GHAZALA
Tand A
Social History
Tobacco: Non-Smoker
Alcohol: Other (Rare)
Family History
No CKD
Allergies / Home Medications
Allergy/AdvReac Type Severity Reaction Status Date / Time
Cephalosporins Allergy Rash Verified 01/05/24 16:03
clindamycin Allergy Rash Verified 01/05/24 16:03
Penicillins Allergy Rash Verified 01/05/24 16:03
�Medication �Instructions �Recorded �Confirmed �Type
hydrochlorothiazide 25 mg tablet 25 mg PO DAILY Blood Pressure ##0 01/06/24 01/13/24 History
levothyroxine 112 mcg tablet 112 mcg PO DAILY Thyroid ##0 01/06/24 01/13/24 History
sertraline 25 mg tablet 25 mg PO DAILY Depression 01/13/24 01/13/24 History
Review of Systems
-
History Source: Patient
All other systems: Negative unless noted
Constitutional: Fatigue
EENT: No Symptoms
Respiratory: No Symptoms
Cardiac: No Symptoms
Abdomen/GI: Abdominal Pain (Left lower quadrant), Nausea, Diarrhea, Black Stools (Yellow stools) and Anorexia
: No Symptoms
Musculoskeletal: No Symptoms
Skin: No Symptoms
Neurological: No Symptoms
Endocrine: No Symptoms
Hematologic/Lymphatic: No Symptoms
Physical Exam
Vital Signs
Vital Signs
Temp Pulse Resp BP Pulse Ox
97.4 F 59 16 129/59 96
01/13/24 07:54 01/13/24 09:19 01/13/24 07:54 01/13/24 09:19 01/13/24 07:54
Lab Results
01/13/24 05:12
01/13/24 05:12
WBC 5.9 10^3/uL (4.8-10.8) 01/13/24 05:12
RBC 3.83 10^6/uL (4.20-5.40) L 01/13/24 05:12
Hgb 12.4 g/dL (12.0-16.0) 01/13/24 05:12
Hct 33.1 % (37.0-47.0) L 01/13/24 05:12
Plt Count 297 10^3/uL (130-400) 01/13/24 05:12
Sodium 125 mmol/L (135-145) L 01/13/24 05:12
Potassium 3.7 mmol/L (3.5-5.1) 01/13/24 05:12
Chloride 97 mmol/L (98-107) L 01/13/24 05:12
Carbon Dioxide 20 mmol/L (22-30) L 01/13/24 05:12
BUN 5 mg/dl (7-17) L 01/13/24 05:12
Creatinine 0.6 mg/dL (0.6-1.0) 01/13/24 05:12
eGFR > 60.00 01/13/24 05:12
Glucose 97 mg/dl (70-99) 01/13/24 05:12
Calcium 9.1 mg/dl (8.4-10.2) 01/13/24 05:12
Albumin 4.5 g/dl (3.5-5.0) 01/13/24 01:05
Physical Exam
General: AOx3, Nontoxic , NAD
HEENT: PERRL, EOMI, Anicteric, Conjunctivae Clear, Ear/Nose Intact, Hearing Normal, Oropharynx Clear/Moist, Dentition Intact, Facial Symmetry, Neck Supple, Neck: Trachea Midline, No JVD and No Thyromegaly, no Bruits
Respiratory: Clear to auscultation bilaterally with normal lung exersion
Cardiac: S1/S2 and Regular Rate/Rhythm
Breast: Deferred by me
Abdomen: Tender in left lower quadrant nondistended, Normal Bowel Sounds and No Hepatosplenomegaly
Rectal: Deferred by Provider
Genito-urinary: No Costovertebral Tenderness
Extremities: No Clubbing, No Cyanosis and No Edema
Skin: No Rash or open lesions
Neuro: Nonfocal/Grossly Intact, CN II-XII (Intact) and Strength (Musculoskeletal exam 5 out of 5 both upper and lower extremities)
Hematologic/Lymphatic: No Cervical Lymphadenopathy, No Submandibular Lymphadenopathy and No Supraclavicular Lymphadenopathy
Psych: Mood/afflect pleasant, Insight/judgement good and Appropriate
Vascular: plus 2 pedal and radial pulses
Data Reviewed
-
Radiology: Report Reviewed by me (CT of abdomen and pelvis: note mild signmoid diverticulitis)
Labs: Labs Reviewed by me ([facility] CBC and urine osmolality)
Old Records: Reviewed (Reviewed sodium level of 08/13 to 01/06/2024 as well as discharge summary from hospitalization for abdominal pain and diarrhea)
Assessment/Plan
-
Impression:
Hyponatremia
Sigmoid diverticulitis
History of acquired hypothyroidism
HTN
Depression
Plan:
-Hyponatremia likely induced from SIADH and volume losses given diarrhea, poor solute intake, and hydrochlorothiazide
-Hold HCTZ and SSRI
-Obtain urine osmolality
-I will provide hypertonic saline for 250 cc, hold isotonic saline given worsening hyponatremia
-Add fluid restriction
-Lisinopril has been added for hypertension
--- NOTE | 2024-01-13 13:41 | CM ---
Reviewed the chart notes and spoke with the patient at the bedside. The patient resides with her daughter in a two story home with two steps to enter. The patient reports no DME/VN/SNF in the past. The patient confirmed [facility] The patient anticipates being discharged to home with no additional needs being identied at this time. CM continues to be available to patient/family and is monitoring medical plan for needs at discharge.
Plan: Discharge to home when medically stable.
[2024-01-13] MEDS: SODIUM CHLORIDE 3% 250 IV (14:25)
[2024-01-13 15:14] LABS: Osmolality Urine 452 mOsm/kg (300-900)
[2024-01-14] MEDS: LEVAQUIN 100 IV (04:31)
[2024-01-14] MEDS: SYNTHROID 112 MCG PO (05:50)
[2024-01-14] MEDS: FLAGYL 500 MG 100 IV ×3 (05:50→21:25)
[2024-01-14 06:00] VITALS: BMI 37.7
[2024-01-14 06:21] LABS: % Basophils 0.8 % (0-2); % Immature Granulocytes 0.6 % (0-0.5); % Lymphocytes 32.9 % (20.5-51.1); % Monocytes 11.2 % (1.7-9.3); % Neutrophils 52.5 % (42.2-75.2); Absolute Basophils 0.1 10^3/uL (0-0.2); Absolute Eosinophils 0.1 10^3/uL (0-0.7); Absolute Lymphocytes 2.1 10^3/uL (1.2-3.4); Absolute Monocytes 0.7 10^3/uL (0.1-0.6); Absolute Neutrophils 3.4 10^3/uL (1.4-6.5); Hematocrit 33.8 % (37.0-47.0); Hemoglobin 12.2 g/dL (12.0-16.0); Mean Corp Hgb Conc. 36.1 g/dL (33.0-37.0); Mean Corpuscular Hgb 31.9 pg (27.0-31.0); Mean Corpuscular Volume 88.5 fL (81.0-99.0); Mean Platelet Volume 8.5 fL (7.4-10.4); Nucleated Red Blood Cells % 0 %; Platelet Count 308 10^3/uL (130-400); Red Blood Cell Count 3.82 10^6/uL (4.20-5.40); Red Cell Dist. Width 13.2 % (11.5-14.5); White Blood Cell Count 6.5 10^3/uL (4.8-10.8)
[2024-01-14 06:54] LABS: Blood Urea Nitrogen 4 mg/dl (7-17); Carbon Dioxide 22 mmol/L (22-30); Chloride 101 mmol/L (98-107); Estimated Creatinine Clearance 90 ml/min; Glucose 97 mg/dl (70-99); Potassium 3.8 mmol/L (3.5-5.1); Sodium 131 mmol/L (135-145); eGFR > 60.00
[2024-01-14 07:35] VITALS: BP 138/72
[2024-01-14] MEDS: PEPCID 20 MG IV ×2 (08:55→21:25)
[2024-01-14] MEDS: ZESTRIL 10 MG PO (08:55)
[2024-01-14] MEDS: NSS (PRESERVATIVE FREE) 8 ML IV ×2 (08:55→21:25)
--- NOTE | 2024-01-14 10:43 | W.PN.HOSP.TC ---
Today's Communication/Plan
-
samsca
abx
advance diet
dc stool studies
Assessment / Plan
Assessment / Plan
A/P: Patient is a 73y F with PMH significant for hypertension and hypothyroidism who presents to ED complaining of abdominal pain and diarrhea.
Acute Sigmoid Diverticulitis
- Continue with IV abx for now. Unfortunately, patient has several abx allergies that necessitate use of Levo / Flagyl.
- Supportive care including IVFs, pain control, antiemetics.
- Check stool studies if patient has further diarrhea. None since admission.
- Follow for clinical improvement with abx course.
- Note that patient is afebrile, has no leukocytosis and prior CT scan was interpreted as unremarkable.
- Would recommend follow-up with GI as an outpatient for eventual colonoscopy as never had colonoscopy in the past.
Hyponatremia Hypotonic
- Recurrent likely due to continued use of HCTZ and continued volume losses.
- Stop HCTZ completely as planned by PCP.
- IVF stopped
- s/p 3% NACL (Per pt, she was flushed during the transfusion)-no rash noted. Flushing resolved per pt.
- Na at 131 and will receive Samsca per nephro.
- Trend BMP
Benign Hypertension
- Stable. Begin lisinopril 10mg daily and adjust as needed for adequate BP control.
Hypothyroidism Subclinical
- Continue current dose of T4 for now.
- repeat TFTs 4- 6 weeks as outpatient pending resolution of acute illness
Anxiety / Depression
- Newly started on sertraline (2 doses) in the event that GI symptoms were related to 'nervous bowels', etc.
- Hold further SSRI for now.
- Follow for improvement in GI symptoms with above treatments.
Obesity due to excess calories
- Affects all aspects of care.
- Encourage healthy diet and increased exercise with goal of weight loss.
DVT Prophylaxis: SCDs
Code Status: Full
Anticipated Discharge: Within 24 hours
Subjective/Interval History
-
Date of Service: January 14, 2024
denies abd pain
tolerating liquids
no nausea or vomiting or diarrhea
Objective Data
-
Labs:
Laboratory Results
01/14/24
05:41
WBC 6.5
Hgb 12.2
Hct 33.8 L
Plt Count 308
Sodium 131 L
Potassium 3.8
Chloride 101
Carbon Dioxide 22
BUN 4 L
Creatinine 0.6
Glucose 97
Calcium 9.0
Vital Signs:
Vital Signs
Temp Pulse Resp BP Pulse Ox
98.1 F 62 16 138/72 99
01/14/24 07:35 01/14/24 08:55 01/14/24 07:35 01/14/24 08:55 01/14/24 07:35
I&O
01/13/24 01/14/24 01/15/24
06:59 06:59 06:59
Intake Total 1140 / 1140
Balance 1140 / 1140
Physical Exam
-
General: No Apparent Distress and Comfortable
HEENT: Normocephalic, Atraumatic, Moist Mucous Membranes, Anicteric and No Ptosis
Respiratory: Clear to Auscultation and Non Labored Respirations
Cardiac: Regular Rhythm and S1/S2
Breast: Deferred by me
GI: Soft, Nontender, Nondistended and Normal Bowel Sounds
Rectal: Deferred by Provider
Genito-urinary: No Costovertebral Tender
Musculoskeletal: No Clubbing, No Cyanosis and No Edema
Skin: Warm and IV Access / Catheter Site
Neuro: Awake, Alert, Oriented and Nonfocal/Grossly Intact
Psych: Calm
[2024-01-14] MEDS: SAMSCA 15 MG PO (11:24)
--- NOTE | 2024-01-14 12:04 | W.PN.NEPH.PH ---
Today's Communication / Plan
-
samsca
Assessment/Plan
-
Impression:
Hyponatremia
Sigmoid diverticulitis
History of acquired hypothyroidism
HTN
Depression
Plan:
Hold HCTZ and SSRI, could eventually restart SSRI
titrate lisinopril for HTN
samsca today
-
-
Date of Service: January 14, 2024
CC / HPI / ROS
-
Chief Complaint:
hyponatremia
History of Present Illness:
Na up to 131 with 3%
BP stable
tolerating advance of diet
Review of Systems:
no CP/SOB
Labs
-
Labs:
WBC 6.5 10^3/uL (4.8-10.8) 01/14/24 05:41
RBC 3.82 10^6/uL (4.20-5.40) L 01/14/24 05:41
Hgb 12.2 g/dL (12.0-16.0) 01/14/24 05:41
Hct 33.8 % (37.0-47.0) L 01/14/24 05:41
Plt Count 308 10^3/uL (130-400) 01/14/24 05:41
Sodium 131 mmol/L (135-145) L 01/14/24 05:41
Potassium 3.8 mmol/L (3.5-5.1) 01/14/24 05:41
Chloride 101 mmol/L (98-107) 01/14/24 05:41
Carbon Dioxide 22 mmol/L (22-30) 01/14/24 05:41
BUN 4 mg/dl (7-17) L 01/14/24 05:41
Creatinine 0.6 mg/dL (0.6-1.0) 01/14/24 05:41
eGFR > 60.00 01/14/24 05:41
Glucose 97 mg/dl (70-99) 01/14/24 05:41
Calcium 9.0 mg/dl (8.4-10.2) 01/14/24 05:41
Albumin 4.5 g/dl (3.5-5.0) 01/13/24 01:05
Physical Exam
-
Vital Signs:
Vital Signs
Temp Pulse Resp BP Pulse Ox
98.1 F 62 16 138/72 99
01/14/24 07:35 01/14/24 08:55 01/14/24 07:35 01/14/24 08:55 01/14/24 10:56
Cardiovascular:: Regular rate and rhythm
Respiratory:: Bilateral: Coarse
Lung Excursion:: Normal
Abdomen:: Nontender and Soft
Bowel Sounds:: Normal
Extremity Edema:: None: Bilateral:
--- NOTE | 2024-01-14 14:16 | CM ---
Reviewed the chart notes. Patient's diet advanced to low residual. CM continues to be available to patient/family and is monitoring medical plan for needs at discharge.
Plan: Discharge to home when medically stable. No needs identified at this time.
[2024-01-14 15:40] VITALS: BP 133/65
[2024-01-14] MEDS: LOVENOX 40 MG SC (17:34)
[2024-01-14 23:25] VITALS: BP 148/66
[2024-01-15] MEDS: LEVAQUIN 100 IV (04:37)
[2024-01-15 05:19] VITALS: BMI 37.6
[2024-01-15] MEDS: SYNTHROID 112 MCG PO (05:38)
[2024-01-15] MEDS: FLAGYL 500 MG 100 IV (05:38)
[2024-01-15 06:36] LABS: % Basophils 0.8 % (0-2); % Eosinophils 1.6 % (0-6); % Immature Granulocytes 0.8 % (0-0.5); % Lymphocytes 29.5 % (20.5-51.1); % Monocytes 12.2 % (1.7-9.3); % Neutrophils 55.1 % (42.2-75.2); Absolute Basophils 0.1 10^3/uL (0-0.2); Absolute Eosinophils 0.1 10^3/uL (0-0.7); Absolute Immature Granulocytes 0.1 10^3/uL (0-0.05); Absolute Lymphocytes 1.8 10^3/uL (1.2-3.4); Absolute Monocytes 0.8 10^3/uL (0.1-0.6); Absolute Neutrophils 3.4 10^3/uL (1.4-6.5); Hemoglobin 11.9 g/dL (12.0-16.0); Mean Corpuscular Hgb 31.9 pg (27.0-31.0); Mean Corpuscular Volume 91.2 fL (81.0-99.0); Mean Platelet Volume 8.6 fL (7.4-10.4); Nucleated Red Blood Cells % 0 %; Platelet Count 281 10^3/uL (130-400); Red Blood Cell Count 3.73 10^6/uL (4.20-5.40); Red Cell Dist. Width 13.4 % (11.5-14.5); White Blood Cell Count 6.2 10^3/uL (4.8-10.8)
[2024-01-15 06:55] LABS: Blood Urea Nitrogen 5 mg/dl (7-17); Calcium 9.2 mg/dl (8.4-10.2); Carbon Dioxide 24 mmol/L (22-30); Chloride 104 mmol/L (98-107); Estimated Creatinine Clearance 77 ml/min; Glucose 96 mg/dl (70-99); Potassium 3.8 mmol/L (3.5-5.1); Sodium 133 mmol/L (135-145); eGFR > 60.00
[2024-01-15 07:45] VITALS: BP 136/56
[2024-01-15] MEDS: PEPCID 20 MG IV (08:27)
[2024-01-15] MEDS: ZESTRIL 10 MG PO (08:27)
[2024-01-15] MEDS: NSS (PRESERVATIVE FREE) 8 ML IV (08:28)
[2024-01-15] MEDS: TYLENOL 650 MG PO (08:44)
[2024-01-15] MEDS: VISBIOME 2 CAP PO (09:07)
--- NOTE | 2024-01-15 10:45 | W.PN.HOSP.TC ---
Addendum entered and electronically signed by Harry Rivas MD 01/21/24 13:33:
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
Original Note:
Today's Communication/Plan
-
monitor stools
nephro recs
possible dc if no more loose bm and pending nephro recs
Assessment / Plan
Assessment / Plan
A/P: Patient is a 73y F with PMH significant for hypertension and hypothyroidism who presents to ED complaining of abdominal pain and diarrhea.
Acute Sigmoid Diverticulitis
Loose stools ?due to abx use
- Continue with IV abx for now. Unfortunately, patient has several abx allergies that necessitate use of Levo / Flagyl. Start probiotics.
- Supportive care including pain control, antiemetics. off IVF.
- Check stool studies if patient has further diarrhea. None since admission.
- Follow for clinical improvement with abx course.
- Note that patient is afebrile, has no leukocytosis and prior CT scan was interpreted as unremarkable.
- Would recommend follow-up with GI as an outpatient for eventual colonoscopy as never had colonoscopy in the past.
Hyponatremia Hypotonic
- Recurrent likely due to continued use of HCTZ and continued volume losses.
- Stop HCTZ completely as planned by PCP.
- IVF stopped
- s/p 3% NACL (Per pt, she was flushed during the transfusion)-no rash noted. Flushing resolved per pt.
- Na at 133 s/p samsca on 01/13.
- Trend BMP
Benign Hypertension
- Stable. Begin lisinopril 10mg daily and adjust as needed for adequate BP control.
Hypothyroidism Subclinical
- Continue current dose of T4 for now.
- repeat TFTs 4- 6 weeks as outpatient pending resolution of acute illness
Anxiety / Depression
- Newly started on sertraline (2 doses) in the event that GI symptoms were related to 'nervous bowels', etc.
- Hold further SSRI for now.
- Follow for improvement in GI symptoms with above treatments.
Obesity due to excess calories
- Affects all aspects of care.
- Encourage healthy diet and increased exercise with goal of weight loss.
DVT Prophylaxis: SCDs
Code Status: Full
Anticipated Discharge: Within 24 hours
Subjective/Interval History
-
Date of Service: January 15, 2024
had couple loose bm earlier today
drank prune juice x 2
tolerating diet
no nausea or vomiting
Objective Data
-
Labs:
Laboratory Results
01/15/24
06:13
WBC 6.2
Hgb 11.9 L
Hct 34.0 L
Plt Count 281
Sodium 133 L
Potassium 3.8
Chloride 104
Carbon Dioxide 24
BUN 5 L
Creatinine 0.7
Glucose 96
Calcium 9.2
Vital Signs:
Vital Signs
Temp Pulse Resp BP Pulse Ox
98.0 F 63 16 136/56 100
01/15/24 07:45 01/15/24 08:27 01/15/24 07:45 01/15/24 08:27 01/15/24 07:45
I&O
01/14/24 01/15/24 01/16/24
06:59 06:59 06:59
Intake Total 1140 / 1140 1260 / 1260
Balance 1140 / 1140 1260 / 1260
Physical Exam
-
General: No Apparent Distress and Comfortable
HEENT: Normocephalic, Atraumatic, Moist Mucous Membranes, Anicteric and No Ptosis
Respiratory: Clear to Auscultation and Non Labored Respirations
Cardiac: Regular Rhythm and S1/S2
Breast: Deferred by me
GI: Soft, Nontender, Nondistended and Normal Bowel Sounds
Rectal: Deferred by Provider
Genito-urinary: No Costovertebral Tender
Musculoskeletal: No Clubbing, No Cyanosis and No Edema
Skin: Warm and IV Access / Catheter Site
Neuro: Awake, Alert, Oriented and Nonfocal/Grossly Intact
Psych: Calm
[2024-01-15] MEDS: IMODIUM 2 MG PO (13:20)
[2024-01-15] MEDS: FLAGYL 500 MG PO ×2 (13:20→15:19)
--- NOTE | 2024-01-15 13:51 | W.PN.NEPH.PH ---
Today's Communication / Plan
-
follow BMP
Assessment/Plan
-
Impression:
Hyponatremia
Sigmoid diverticulitis
History of acquired hypothyroidism
HTN
Depression
Plan:
no more HCTZ
if needed, SSRI could be restarted as outpatient
continue lisinopril
BMP 1 week
maintain FR 40oz/day until Na normalizes
-
-
Date of Service: January 15, 2024
CC / HPI / ROS
-
Chief Complaint:
hyponatremia
History of Present Illness:
Na up to 133
BP stable
tolerating advance of diet
diarrhea today after prune juice last night
Review of Systems:
no CP/SOB
Labs
-
Labs:
WBC 6.2 10^3/uL (4.8-10.8) 01/15/24 06:13
RBC 3.73 10^6/uL (4.20-5.40) L 01/15/24 06:13
Hgb 11.9 g/dL (12.0-16.0) L 01/15/24 06:13
Hct 34.0 % (37.0-47.0) L 01/15/24 06:13
Plt Count 281 10^3/uL (130-400) 01/15/24 06:13
Sodium 133 mmol/L (135-145) L 01/15/24 06:13
Potassium 3.8 mmol/L (3.5-5.1) 01/15/24 06:13
Chloride 104 mmol/L (98-107) 01/15/24 06:13
Carbon Dioxide 24 mmol/L (22-30) 01/15/24 06:13
BUN 5 mg/dl (7-17) L 01/15/24 06:13
Creatinine 0.7 mg/dL (0.6-1.0) 01/15/24 06:13
eGFR > 60.00 01/15/24 06:13
Glucose 96 mg/dl (70-99) 01/15/24 06:13
Calcium 9.2 mg/dl (8.4-10.2) 01/15/24 06:13
Albumin 4.5 g/dl (3.5-5.0) 01/13/24 01:05
Physical Exam
-
Vital Signs:
Vital Signs
Temp Pulse Resp BP Pulse Ox
98.0 F 63 16 136/56 100
01/15/24 07:45 01/15/24 08:27 01/15/24 07:45 01/15/24 08:27 01/15/24 11:34
Cardiovascular:: Regular rate and rhythm
Respiratory:: Bilateral: CTA
Lung Excursion:: Normal
Abdomen:: Nontender and Soft
Bowel Sounds:: Normal
Extremity Edema:: None: Bilateral:
--- NOTE | 2024-01-15 13:55 | W.DCSUMMARY ---
Discharge Summary
Discharge Data
Date of Admission: 01/13/24
Date of Discharge: 01/16/24
-
Pending Results: No
Hospital Course
73 female past medical history of hypertension, hypothyroidism who is presenting from home with complaints of abdominal pain and diarrhea. Patient underwent CTA abdomen pelvis with finding suggestive of mild sigmoid diverticulitis. No evidence of
intestinal obstruction, nephrolithiasis, hydronephrosis, cholecystitis or abscess formation. Patient was started on Levaquin and Flagyl as allergic to multiple antibiotics. Patient was started on IV fluid resuscitation. Labs were trended.
Patient was also found to have severe hyponatremia which was deemed secondary to HCTZ and SSRI. Nephrology was consulted. Patient received 3% hypertonic saline with mild improvement. Also received Samsca. Sodium finally stabilized. Fluid
restriction to be continued on discharge until sodium stabilizes. Patient was started on lisinopril for blood pressure control. Patient with improvement abdominal pain and diet was advanced to liquid. Patient tolerated liquids and thus was
advanced to low residue. Stool studies was negative for C. difficile. Patient will need to follow-up outpatient with primary doctor and also recommended gastroenterology has never had a colonoscopy in the past.
Discharge Plan
-
Patient Disposition: Home (Routine Discharge)
Discharge Diagnosis/Procedures: Acute sigmoid diverticulitis
Hypotonic hyponatremia
Condition: Fair
Diet: Low Residue
Additional Diets: Maintain fluid restriction 40oz/day until sodium normalizes
Activity: With assistance
Driving Restrictions: As prior to admission
Blood Work: Repeat BMP in 1 week with primary doctor
Repeat thyroid function testing in 4 weeks with primary doctor
Referrals:
Gal Martin MD [Active] - in four to six weeks (follow up for diverticuilits)
Daxa Marie DO [Family Provider] - in less than 1 week
Prescriptions:
New
lisinopril 10 mg Tablet
10 mg PO DAILY 30 Days Qty: 30 0RF
levofloxacin 500 mg tablet
500 mg PO DAILY 5 Days Qty: 5 0RF
metronidazole 500 mg tablet
500 mg PO TID 5 Days Qty: 15 0RF
Continued
levothyroxine 112 mcg Tablet
112 mcg PO DAILY Qty: 0
Discontinued
hydrochlorothiazide 25 mg Tablet
25 mg PO DAILY Qty: 0
sertraline 25 mg Tablet
25 mg PO DAILY
Discharge Orders:
Discharge Patient (As Directed); Ordered 01/15/24
Ordered By: Harry Rivas
Discharge Date and Time
Discharge Date/Time: 01/15/24 17:03
Print Language: SPANISH
[2024-01-15 15:30] VITALS: BP 166/76
--- NOTE | 2024-01-15 15:34 | CM ---
Reviewed the chart notes and spoke withe the patient at the bedside. IMM signed and placed on chart. Patient expects to be discharged today to home. Patient's daughter will provide transportation. CM continues to be available to patient/family
and is monitoring medical plan for needs at discharge.
Plan: Discharge to home with no additional needs being identified at this time.
[2024-01-15 16:04] VITALS: BP 148/80
--- NOTE | 2024-01-15 16:50 | PTCARENOTE ---
Patient discharged home. This RN removed patient's IV and reviewed discharge instructions with patient and her daughter, both verbalized understanding. Patient dressed and gathered belongings in room independently, patient provided educational
packets on low residue diet by this RN. Patient being transported home by daughter, taken down to [facility] via staff escort and wheelchair.
--- NOTE | 2024-01-20 15:18 | PN.CDI ---
CDI
- -
CDI:
Physician Documentation Request
Admit Date: 01/13/24 04:04
Dear Doctor Evelyn,
Please review the following and provide your response in the progress notes.
Clinical Indicators:
Pt admitted with Diverticulitis/ Hyponatremia
Documented throughout the record ,' Hyponatremia Hypotonic Recurrent likely due to continued use of HCTZ and continued volume losses....'
Documented per nephrology consult,' Hyponatremia likely induced from SIADH and volume losses given diarrhea, poor solute intake, and hydrochlorothiazide..Hold HCTZ and SSRI...I will provide hypertonic saline for 250 cc..'
Urine studies/labs are below/ Pt did get 3 % saline on 01/12 and Samsca 15 mg on 01/13 per med list
Laboratory Tests
01/13/24 01/13/24
05:12 12:03
Serum Osmolality 263 L
Urine Osmolality 452
Urine Sodium 92 H
Please provide an update on SIADH documented in nephrology consult:
SIADH - A valid Diagnosis
SIADH -ruled out
Other ( please specify )
Use of terms such as suspected, likely, concern for, or probable (associated with a specific diagnosis that is being evaluated, monitored, or treated as if it exists) are acceptable and can be coded in the inpatient setting, when documented at the
time of discharge.
Thank you,
Jessica Akbar RN
CDI Specialist
[place] [employer]
Please use your independent medical judgment in providing your response.
== END 2024-01-15 17:03 | disposition home or self-care (01) | DRG 644 ==
LOC: 2 NORTH 04:04
PROVIDERS: ADMITTING PHYSICIAN Hospitalist; ATTENDING PHYSICIAN Hospitalist; CONSULT PHYSICIAN Specialist; EMERGENCY PHYSICIAN Emergency Medicine; FAMILY PHYSICIAN Family Medicine
DX: E22.2 Syndrome of inappropriate secretion of antidiuretic hormone (principal); K57.32 Diverticulitis of large intestine without perforation or abscess without bleeding; I10 Essential (primary) hypertension; E03.9 Hypothyroidism, unspecified; E66.09 Other obesity due to excess calories; F41.9 Anxiety disorder, unspecified; F32.A Depression, unspecified; T50.2X5A Adverse effect of carbonic-anhydrase inhibitors, benzothiadiazides and other diuretics, initial encounter; T43.225A Adverse effect of selective serotonin reuptake inhibitors, initial encounter; Z68.37 Body mass index [BMI] 37.0-37.9, adult; Z88.1 Allergy status to other antibiotic agents
CPT/HCPCS: 74177; 80048; 80053; 83605; 83930; 83935; 84300; 84439; 84443; 85025; 85027; 87324; 87449; 96361; 96365; 96375; 99285; Q9967

== ENCOUNTER → 2024-01-20 12:06 | Outpatient (REF) | payer MEDICARE, OTHER, SELFPAY ==
[2024-01-20 16:00] LABS: Blood Urea Nitrogen 10 mg/dl (7-17); Calcium 9.6 mg/dl (8.4-10.2); Carbon Dioxide 24 mmol/L (22-30); Chloride 103 mmol/L (98-107); Glucose 78 mg/dl (70-99); Potassium 3.8 mmol/L (3.5-5.1); Sodium 135 mmol/L (135-145); eGFR > 60.00
== END ==
LOC: HWLAB 12:06
PROVIDERS: ATTENDING PHYSICIAN Internal Medicine
DX: E87.1 Hypo-osmolality and hyponatremia (principal)
CPT/HCPCS: 36415; 80048

== ENCOUNTER → 2024-01-31 11:47 | Outpatient (REF) | payer MEDICARE, OTHER, SELFPAY ==
[2024-01-31 16:11] LABS: Blood Urea Nitrogen 11 mg/dl (7-17); Calcium 9.9 mg/dl (8.4-10.2); Carbon Dioxide 24 mmol/L (22-30); Chloride 103 mmol/L (98-107); Glucose 83 mg/dl (70-99); Potassium 4.7 mmol/L (3.5-5.1); Sodium 135 mmol/L (135-145); eGFR > 60.00
[2024-01-31 16:31] LABS: TSH Reflex To Free T4 0.57 uIU/ml (0.47-4.68)
== END ==
LOC: HWLAB 11:47
PROVIDERS: ATTENDING PHYSICIAN Family Medicine
DX: R79.89 Other specified abnormal findings of blood chemistry (principal); E87.1 Hypo-osmolality and hyponatremia; N39.46 Mixed incontinence
CPT/HCPCS: 36415; 80048; 84443; 87086

== ENCOUNTER → 2024-12-04 09:05 | Outpatient (REF) | payer MEDICARE, OTHER, SELFPAY ==
[2024-12-04 13:19] LABS: ALT (SGPT) 15 U/L (0-35); AST (SGOT) 18 U/L (14-36); Albumin 4.2 g/dl (3.5-5.0); Alkaline Phosphatase 72 U/L (38-126); Blood Urea Nitrogen 14 mg/dl (7-17); Calcium 9.7 mg/dl (8.4-10.2); Carbon Dioxide 29 mmol/L (22-30); Chloride 106 mmol/L (98-107); Glucose 89 mg/dl (70-99); HDL Cholesterol 50 mg/dl; LDL Cholesterol, Calculated 122 mg/dl; Potassium 4.5 mmol/L (3.5-5.1); Sodium 139 mmol/L (135-145); Total Bilirubin 0.8 mg/dl (0.2-1.3); Total Cholesterol 205 mg/dl (50-199); Triglyceride 168 mg/dl (10-149); Very Low Density Lipoprotein 33 mg/dl (0-30); eGFR > 60.00
[2024-12-04 13:32] LABS: % Basophils 0.8 % (0-2); % Eosinophils 2.1 % (0-6); % Immature Granulocytes 0.5 % (0-0.5); % Lymphocytes 26.9 % (20.5-51.1); % Monocytes 9.5 % (1.7-9.3); % Neutrophils 60.2 % (42.2-75.2); Absolute Basophils 0.1 10^3/uL (0-0.2); Absolute Eosinophils 0.1 10^3/uL (0-0.7); Absolute Lymphocytes 1.6 10^3/uL (1.2-3.4); Absolute Monocytes 0.6 10^3/uL (0.1-0.6); Absolute Neutrophils 3.7 10^3/uL (1.4-6.5); Hematocrit 39.9 % (37.0-47.0); Hemoglobin 13.4 g/dL (12.0-16.0); Mean Corp Hgb Conc. 33.6 g/dL (33.0-37.0); Mean Corpuscular Hgb 31.7 pg (27.0-31.0); Mean Corpuscular Volume 94.3 fL (81.0-99.0); Nucleated Red Blood Cells % 0 %; Red Blood Cell Count 4.23 10^6/uL (4.20-5.40); Red Cell Dist. Width 13.7 % (11.5-14.5); White Blood Cell Count 6.1 10^3/uL (4.8-10.8)
[2024-12-04 13:51] LABS: TSH 1.47 uIU/ml (0.47-4.68)
== END ==
LOC: HWLAB 09:05
PROVIDERS: ATTENDING PHYSICIAN Family Medicine
DX: Z00.00 Encounter for general adult medical examination without abnormal findings (principal); E03.9 Hypothyroidism, unspecified; I10 Essential (primary) hypertension
CPT/HCPCS: 36415; 80053; 80061; 84443; 85025